=== PATIENT | male | born 1955 | race Hispanic/Latino ===

== ENCOUNTER → 2018-10-02 | Day surgery (SDC) | payer OTHER ==
[2018-09-29 09:03] LABS: BASOPHILS # (AUTO) 0.1 (0.0-0.1); BASOPHILS % 0.8 % (0.0-1.0); EOSINOPHILS # (AUTO) 0.1 (0.0-0.4); EOSINOPHILS % 1.6 % (0.0-6.0); HEMATOCRIT 46.9 % (38.2-49.6); LYMPHOCYTES # (AUTO) 1.3 (1.0-3.2); LYMPHOCYTES % 16.2 % (18.0-39.1); MEAN CORPUSCULAR HEMOGLOBIN 28.5 pg (28-32); MEAN CORPUSCULAR VOLUME 89.2 fL (81-99); MONOCYTES # (AUTO) 0.5 (0.2-0.8); MONOCYTES % 6.4 % (4.4-11.3); NEUTROPHILS # (AUTO) 5.8 (2.1-6.9); NEUTROPHILS % 74.6 % (38.7-80.0); PLATELET COUNT 236 x10e3/uL (140-360); RED BLOOD COUNT 5.26 x10e6/uL (4.3-5.7)
[~2018-10-02] MED LIST: AUGMENTIN 500-1 EACH PO; FENTANYL CITRATE/PF 100MCG/2 ML INJ ONE; GLUCAGON FOR INJ 1 MG VIAL ONE; HYOSCYAMINE SULFATE 0.5 MG/ML INJ ONE; LISINOPRIL10 MG PO; METFORMIN HCL500 MG PO; MIDAZOLAM HCL 5 MG/ML VIAL ONE; PROPOFOL IV EMULSION 10 MG/ML 50 ML VIAL ONE; SIMVASTATIN20 MG PO; TYLENOL WITH C1 EACH PO
--- NOTE | 2018-10-03 00:02 | Operative Report ---
DATE OF PROCEDURE: 10/02/2018 SURGEON: Luis Sequeira MD PROCEDURE PERFORMED: Colonoscopy and polypectomy with biopsies. INDICATIONS FOR COLONOSCOPY: Surveillance colonoscopy, personal history of colon polyps. MEDICATIONS: The patient was done under MAC, please see anesthesiologist's note. PROCEDURE IN DETAIL: With the patient in the left lateral decubitus position, a flexible fiberoptic Olympus colonoscope was inserted into the rectum with ease and advanced all the way to the cecum. Three polyps were snared from the cecum. A sessile smooth lesion was noted in the appendiceal orifice and biopsies were obtained. The ascending colon was within normal limits. Three polyps were snared from the transverse colon. One polyp was hot biopsied from the proximal descending colon. Two polyps were snared from the distal descending with the largest being approximately 1.3 cm sessile. The polypectomy site was hemoclipped x2 and tattooed. One polyp was snared from the sigmoid colon. One polyp was hot biopsied from the rectum. The scope was then retroflexed into the distal rectum. Small internal hemorrhoids were noted, none of which was actively bleeding. The scope was then straightened out and was subsequently withdrawn. The patient tolerated the procedure well. IMPRESSION: 1. Cecal polyps x3, snared. 2. Sessile lesion in appendiceal orifice versus everted appendiceal stump, biopsied. 3. Transverse colon polyps x3, snared. 4. Descending colon polyp, hot biopsied. 5. Distal descending polyps x2, largest approximately 1.3 cm in size, sessile, removed per snare electrocautery. Polypectomy site hemoclipped x2 and tattooed. 6. Sigmoid colon polyp, snared. 7. Rectal polyp, hot biopsied. 8. Internal hemorrhoids, none actively bleeding. PLAN: Followup histology. Initiate high-fiber and low-fat diet. Initiate high-fiber supplement. A total of 10 polyps were removed. The patient might benefit from a followup colonoscopy in 1 year. MD MARIALUISA James/HAKEEM /[id number] cc: Nan Moore DO
== END | disposition home or self-care (01) ==
LOC: OR 11:33
PROVIDERS: ATTEND Internal Medicine Gastroenterology
DX: K92.1 Melena (principal); D12.0 Benign neoplasm of cecum; D12.3 Benign neoplasm of transverse colon; D12.4 Benign neoplasm of descending colon; D12.5 Benign neoplasm of sigmoid colon; K62.1 Rectal polyp; K63.89 Other specified diseases of intestine; K64.8 Other hemorrhoids; G47.33 Obstructive sleep apnea (adult) (pediatric); I10 Essential (primary) hypertension; E11.9 Type 2 diabetes mellitus without complications; I45.10 Unspecified right bundle-branch block; Z01.812 Encounter for preprocedural laboratory examination; Z79.84 Long term (current) use of oral hypoglycemic drugs; Z68.41 Body mass index [BMI] 40.0-44.9, adult
CPT/HCPCS: 36415 ×2; 45380; 45384; 45385; 82948; 85025; 93005; J1610; J1980; J2250; J2704